=== PATIENT | male | born 1980 | race Caucasian/White ===

== ENCOUNTER 2017-01-10 08:02 | Emergency (ER) | payer SELFPAY ==
[2017-01-10] MEDS ORDERED: ACETAMINOPHEN 325 MG TABLET PO ONE (08:15)
[2017-01-10 08:18] VITALS: BP 127/60
--- NOTE | 2017-01-10 08:19 | ER Document Report ---
HPI - HPI Patient complains to provider of: ankle pain Onset: Yesterday Onset/Duration: Sudden - rolled his right ankle while walking Quality of pain: Achy, Pressure Pain Level: 2 Exacerbated by: Movement, Walking Relieved by: Supine, Remaining still Similar symptoms previously: No Recently seen / treated by doctor: No - DERM Skin Color: Normal Past Medical History - Social History Smoking Status: Current Every Day Smoker Family History: Reviewed & Not Pertinent Patient has suicidal ideation: No Patient has homicidal ideation: No Renal/ Medical History: Denies: Hx Peritoneal Dialysis Vertical Provider Document - CONSTITUTIONAL Agree With Documented VS: Yes Exam Limitations: No Limitations General Appearance: WD/WN, No Apparent Distress - INFECTION CONTROL TRAVEL OUTSIDE OF THE [place] IN LAST 30 DAYS: No - RESPIRATORY O2 Sat by Pulse Oximetry: 95 - CARDIOVASCULAR Pulses: Normal: Dorsalis pedis Notes: cap refill < 2seconds - MUSCULOSKELETAL/EXTREMETIES Musculoskeletal/Extremeties: MAEW, FROM, Tender - ove rlateral left ankle with minimal swelling. negative: Eccymosis - NEURO Level of Consciousness: Awake, Alert, Appropriate Motor/Sensory: No Motor Deficit, No Sensory Deficit - DERM Integumentary: Warm, Dry, No Rash. negative: Laceration Course - Re-evaluation Re-evalutation: 01/10/17 08:19 No evidence of fracture or dislocation noted. Patient with full range of motion , able to bear weight. Discharge home with instructions for ankle sprain - Vital Signs Vital signs: Temp Pulse Resp BP Pulse Ox 98.4 F 105 H 20 127/60 H 95 01/10/17 08:16 01/10/17 08:16 01/10/17 08:16 01/10/17 08:16 01/10/17 08:16 - Diagnostic Test Radiology reviewed: Image reviewed, Reports reviewed Discharge - Discharge Clinical Impression: Ankle sprain Qualifiers: Encounter type: initial encounter Involved ligament of ankle: unspecified ligament Laterality: right Qualified Code(s): S93.401A - Sprain of unspecified ligament of right ankle, initial encounter Condition: Good Disposition: HOME, SELF-CARE Instructions: Sprained Ankle ([facility]), Ice Packs ([facility]), Use of Ixjl-Tiu-Kecxzxd Ibuprofen ([facility]), Acetaminophen Forms: Return to Work
--- NOTE | 2017-01-10 08:44 | RADIOLOGY REPORT (SQ) ---
EXAM DESCRIPTION: ANKLE RIGHT COMPLETE COMPLETED DATE/TIME: 01/10/2017 8:27 am REASON FOR STUDY: pain, fall COMPARISON: None. NUMBER OF VIEWS: Three views. TECHNIQUE: AP, lateral, and oblique radiographic images acquired of the right ankle. LIMITATIONS: None. FINDINGS: MINERALIZATION: Normal. BONES: No acute fracture or dislocation. No worrisome bone lesions. Pes planus. JOINTS: Mild degenerative changes. SOFT TISSUES: Mild soft tissue swelling laterally. OTHER: No other significant finding. IMPRESSION: Mild soft tissue swelling without evidence of acute fracture. TECHNICAL DOCUMENTATION: JOB ID: [id number] [employer]- All Rights Reserved
== END 2017-01-10 09:10 | disposition home or self-care (01) ==
LOC: ER 08:02
DX: S93.401A Sprain of unspecified ligament of right ankle, initial encounter (principal); X50.0XXA Overexertion from strenuous movement or load, initial encounter; Y93.01 Activity, walking, marching and hiking; F17.200 Nicotine dependence, unspecified, uncomplicated
CPT/HCPCS: 99283